=== PATIENT | male | born 1955 | race Caucasian/White ===

== ENCOUNTER → 2024-05-18 12:48 | Outpatient (REF) | payer OTHER, SELFPAY | LOC: HWRCS 12:48 | PROVIDERS: ATTENDING PHYSICIAN Internal Medicine Cardiovascular Disease; FAMILY PHYSICIAN Nurse Practitioner Family | DX: I10 Essential (primary) hypertension (principal); I63.232 Cerebral infarction due to unspecified occlusion or stenosis of left carotid arteries | CPT/HCPCS: 93306 ==